=== PATIENT | male | born 1990 | race Two or more races ===

== ENCOUNTER 2018-02-24 07:14 | Emergency (ER) | payer SELFPAY ==
[2018-02-24 07:29] VITALS: BP 119/76; PULSE 52; TEMP 98.1; BMI 26.6
--- NOTE | 2018-02-24 07:55 | PDOC ---
Attending Attestation - HPI HPI: 02/24/18 08:00 The patient is a 27 year old male, with no significant past medical history, who presents to the emergency department with 3 days of increased urinary frequency. The patient states his lives in [place] and he recently had sex with a new partner. He is requesting STD testing. He reports some unknown STD in the past but reports resolution with medications. He denies chest pain, shortness of breath, headache and dizziness. He denies fever, chills, nausea, vomit, diarrhea and constipation. He denies dysuria, frequency, urgency and hematuria. Allergies: NKDA - Physicial Exam PE: 02/24/18 08:01 Vitals: Triage vital signs reviewed General Appearance: No acute distress, well nourished, well developed Head: Atraumatic Eyes: Pupils equal reactive round, extraocular movement intact Neck: Supple; No nuchal rigidity Chest Wall: Nontender Cardiac: Regular rate and rhythm, no murmurs, no rubs, no gallops Lungs: Clear to auscultation bilateral, good air movement bilaterally Abdomen: Soft, nondistended, normal bowel sounds, nontender to palpation Musculoskeletal: no CVA tenderness Genitourinary: no discharge, no testicular pain, no rashes Rectal: Exam deferred Extremities: Full range of motion to all extremities, no cyanosis, clubbing, or edema Skin: Warm and dry, no rashes or lesions, no rash, no petechiae Neuro: AOX3; Cranial Nerves 2-12 grossly intact, Strength intact to all extremities, Sensation intact to all extremities, gait normal Psych: Normal mood, normal affect - Medical Decision Making 02/24/18 08:01 This is a 27 year old M, with no significant past medical history, who presents to the emergency department with 3 days of increased urinary frequency since having intercourse with a new partner. Plan: Labs, reassess, dispo 02/24/18 08:05 Documentation prepared by Melissa Whitman, acting as front office medical assistant for Andrea Guaman MD, <Melissa Whitman - Last Filed: 02/24/18 09:23> - Resident Resident Name: August Solitario - ED Attending Attestation I have performed the following: I have examined & evaluated the patient, The case was reviewed & discussed with the resident, I agree w/resident's findings & plan, Exceptions are as noted - Medical Decision Making Mild dysuria no signs and symptoms of obvious STD. GC chlamydia and syphilis all sent. Patient will be informed of any positive results Findings, need for follow-up and strict return instructions discussed with patient. <Andrea Guaman - Last Filed: 02/24/18 14:05>
[2018-02-24 08:12] LABS: BASO % 0.4 % (0-2.0); EOS % 0.7 % (0-4.5); HEMATOCRIT 44.3 % (35.4-49); HEMOGLOBIN 15.6 GM/dL (11.7-16.9); LYMPH % 28.7 % (8-40); MCH 29.2 pg (25.7-33.7); MCHC 35.1 g/dl (32.0-35.9); MEAN CELL VOLUME 83.2 fl (80-96); MEAN PLT VOLUME 8.3 fl (7.5-11.1); NEUT % 63.2 % (42.8-82.8); PLATELET COUNT 217 K/MM3 (134-434); RBC 5.32 M/mm3 (4.00-5.60); RDW 13.4 % (11.9-15.9); WHITE BLOOD COUNT 5.2 K/mm3 (4.0-10.0)
[2018-02-24 08:14] LABS: URINE APPEARANCE CLEAR; URINE BILIRUBIN NEGATIVE (<2.0 mg/dL); URINE BLOOD NEGATIVE (NEGATIVE); URINE COLOR YELLOW; URINE GLUCOSE (UA) NEGATIVE (NEGATIVE); URINE KETONE NEGATIVE (NEGATIVE); URINE LEUK ESTERASE NEGATIVE (NEGATIVE); URINE NITRITE NEGATIVE (NEGATIVE); URINE PROTEIN NEGATIVE (NEGATIVE); URINE UROBILINOGEN NEGATIVE mg/dL (0.2-1.0)
--- NOTE | 2018-02-24 08:16 | PDOC ---
History of Present Illness - General Chief Complaint: Urinary Problem Stated Complaint: R/O UTI Time Seen by Provider: 02/24/18 07:31 History Source: Patient Exam Limitations: No Limitations - History of Present Illness Initial Comments: 02/24/18 08:05 27m with no pmh presents to the ED for increased urination frequency with residual post-void feeling for the past 3 days. States he's urinating 15 times throughout the day. Patient desires to be evaluated for STDs as he may have had some risky sexual behavior. One remote episode of penile discharge that was treated. Unknown if it was chlamydia. Denies rash, burning on urination, pruritus. Past History - Past Medical History Allergies/Adverse Reactions: Allergies Allergy/AdvReac Type Severity Reaction Status Date / Time No Known Allergies Allergy Verified 02/24/18 07:25 Home Medications: Ambulatory Orders NK [No Known Home Medication] 02/24/18 COPD: No - Suicide/Smoking/Psychosocial Hx Smoking History: Never smoked Have you smoked in the past 12 months: No Information on smoking cessation initiated: No Hx Alcohol Use: No Drug/Substance Use Hx: No Substance Use Type: None Review of Systems - Review of Systems Able to Perform ROS?: Yes Is the patient limited Greenlandic proficient: No Constitutional: No: Symptoms Reported HEENTM: No: Symptoms Reported Respiratory: No: Symptoms reported Cardiac (ROS): No: Symptoms Reported ABD/GI: No: Symptoms Reported : Yes: See HPI Musculoskeletal: No: Symptoms Reported Integumentary: No: Symptoms Reported Neurological: No: Symptoms reported Endocrine: No: Symptoms Reported All Other Systems: Reviewed and Negative *Physical Exam - Vital Signs Last Vital Signs Temp Pulse Resp BP Pulse Ox 98.1 F 52 L 16 119/76 100 02/24/18 07:26 02/24/18 07:26 02/24/18 07:26 02/24/18 07:26 02/24/18 07:26 - Physical Exam General Appearance: Yes: Nourished, Appropriately Dressed. No: Apparent Distress HEENT: positive: EOMI, ALYSA, Normal ENT Inspection Respiratory/Chest: positive: Lungs Clear, Normal Breath Sounds. negative: Chest Tender, Respiratory Distress Cardiovascular: positive: Regular Rhythm, Regular Rate, S1, S2 Male Genitalia: positive: normal genitalia Extremity: positive: Normal Inspection, Normal Range of Motion Integumentary: positive: Normal Color, Dry, Warm Neurologic: positive: Fully Oriented, Alert, Normal Mood/Affect ED Treatment Course - LABORATORY CBC & Chemistry Diagram: 02/24/18 08:00 02/24/18 08:00 Medical Decision Making - Medical Decision Making 02/24/18 08:17 27m with pmh presents with increased urination and request for STD testing. Will send basic labs, UA and STD panel. 02/24/18 09:28 HIV negative. Will call if gonorrhea/chlam come back positive. DC *DC/Admit/Observation/Transfer Diagnosis at time of Disposition: Frequency of micturition - Discharge Dispostion Disposition: HOME Condition at time of disposition: Improved Admit: No - Referrals - Patient Instructions Printed Discharge Instructions: How to Detect and Treat STDs, Facts About Sexually Transmitted Infections Additional Instructions: Come back to the ER for any new, worsening or concerning symptom. You will get called for the results of your test if positive. Print Language: GERMAN - Post Discharge Activity
[2018-02-24 08:33] LABS: ALBUMIN 4.5 g/dl (3.4-5.0); ALK PHOS 72 U/L (45-117); ANION GAP 5 (8-16); BILIRUBIN,TOTAL 0.7 mg/dL (0.2-1.0); BLOOD UREA NITROGEN 9 mg/dL (7-18); CHLORIDE 105 mmol/L (98-107); CO2 28 mmol/L (21-32); CREATININE 0.8 mg/dL (0.7-1.3); GLUCOSE,RANDOM 100 mg/dL (74-106); SGOT/AST 21 U/L (15-37); SGPT/ALT 22 U/L (12-78); SODIUM 138 mmol/L (136-145); TOT PROT 7.6 g/dl (6.4-8.2)
== END 2018-02-24 09:38 | disposition home or self-care (01) ==
LOC: JER 07:14
DX: Z11.3 Encounter for screening for infections with a predominantly sexual mode of transmission (principal); R35.0 Frequency of micturition
CPT/HCPCS: 36415; 80053; 81003; 85025; 86593; 87389; 87491; 87591; 99282-25

== ENCOUNTER 2018-07-16 15:19 | Emergency (ER) | payer OTHER ==
[2018-07-16 15:28] VITALS: BMI 42.5
--- NOTE | 2018-07-16 15:46 | PDOC ---
History of Present Illness - General Chief Complaint: Pain Stated Complaint: FREQUENT URINATION Time Seen by Provider: 07/16/18 15:46 - History of Present Illness Initial Comments: 07/16/18 15:54 Mr. Kitchen is a 28 yo male w/ no significant pmh who presents for evaluation of 1 week history of frequent urination and 1 day history of R testicle pain. Patient denies any trauma or other injury. Reports he is not sexually active [place]. STI testing offered and refused at this time. The patient denies chest pain, shortness of breath, headache and dizziness. Denies fever, chills, nausea, vomit, diarrhea and constipation. Denies dysuria, frequency, urgency and hematuria. Allergies: NKDA Past History - Past Medical History Allergies/Adverse Reactions: Allergies Allergy/AdvReac Type Severity Reaction Status Date / Time No Known Allergies Allergy Verified 07/16/18 15:29 Home Medications: Ambulatory Orders NK [No Known Home Medication] 02/24/18 COPD: No - Suicide/Smoking/Psychosocial Hx Smoking History: Never smoked Have you smoked in the past 12 months: No Hx Alcohol Use: No Drug/Substance Use Hx: No Substance Use Type: None Review of Systems - Review of Systems Comments:: 07/16/18 15:55 GENERAL/CONSTITUTIONAL: No fever or chills. No weakness. HEAD, EYES, EARS, NOSE AND THROAT: No change in vision. No ear pain or discharge. No sore throat. CARDIOVASCULAR: No chest pain or shortness of breath RESPIRATORY: No cough, wheezing, or hemoptysis. GASTROINTESTINAL: No nausea, vomiting, diarrhea or constipation. GENITOURINARY: +Right testicle pain as described. Urinary frequency x1 week. MUSCULOSKELETAL: No joint or muscle swelling or pain. No neck or back pain. SKIN: No rash NEUROLOGIC: No headache, vertigo, loss of consciousness, or change in strength/ sensation. ENDOCRINE: No increased thirst. No abnormal weight change HEMATOLOGIC/LYMPHATIC: No anemia, easy bleeding, or history of blood clots. ALLERGIC/IMMUNOLOGIC: No hives or skin allergy. *Physical Exam - Vital Signs Last Vital Signs Temp Pulse Resp BP Pulse Ox 98.8 F 68 18 126/73 98 07/16/18 15:24 07/16/18 15:24 07/16/18 15:24 07/16/18 15:24 07/16/18 15:24 - Physical Exam Comments: 07/16/18 15:55 GENERAL: Awake, alert, and fully oriented, in no acute distress HEAD: No signs of trauma, normocephalic, atraumatic EYES: PERRLA, EOMI, sclera anicteric, conjunctiva clear ENT: Auricles normal inspection, hearing grossly normal, nares patent, oropharynx clear without exudates. Moist mucosa NECK: Normal ROM, supple, no lymphadenopathy, JVD, or masses LUNGS: No distress, speaks full sentences, clear to auscultation bilaterally HEART: Regular rate and rhythm, normal S1 and S2, no murmurs, rubs or gallops, peripheral pulses normal and equal bilaterally. ABDOMEN: Soft, nontender, normoactive bowel sounds. No guarding, no rebound. No masses EXTREMITIES: Normal inspection, Normal range of motion, no edema. No clubbing or cyanosis. NEUROLOGICAL: Cranial nerves II through XII grossly intact. Normal speech, normal gait, no focal sensorimotor deficits SKIN: Warm, Dry, normal turgor, no rashes or lesions noted. : +Pain w/ palpation of R testicle. Normal cremasteric reflex LASHONDA. No deformity appreciated. Medical Decision Making - Medical Decision Making 07/16/18 19:31 Mr. Kitchen is a 28 yo male w/ pmh as described who presents for evaluation of testicular pain and frequent urination. Patient recently had workup which confirmed no DM so no further blood testing taken. UA negative as below. US ordered for further evaluation negative. No concern for acute process at this time. Discharging to home for further outpatient evaluation. Laboratory Results - last 24 hr 07/16/18 16:00 Urine Color Yellow Urine Appearance Clear Urine pH 5.0 Ur Specific [place] 1.023 Urine Protein Negative Urine Glucose (UA) Negative Urine Ketones Negative Urine Blood Negative Urine Nitrite Negative Urine Bilirubin Negative Urine Urobilinogen Negative Ur Leukocyte Esterase Negative *DC/Admit/Observation/Transfer Diagnosis at time of Disposition: Frequency of micturition, Testicular pain - Discharge Dispostion Disposition: HOME - Referrals Referrals: Boaz Villagomez MD [Staff Physician] - - Patient Instructions Printed Discharge Instructions: DI for Testicular Pain Additional Instructions: You were evaluated today in the ER for your testicular pain. No concerning findings were found at this time. Please follow-up with urology using provided information next week outpatient for further evaluation. Return to ER if any increase in pain, fever, chills, or other concerning symptoms. Print Language: MONGOLIAN - Post Discharge Activity
[2018-07-16 16:11] LABS: URINE APPEARANCE CLEAR; URINE BILIRUBIN NEGATIVE (<2.0 mg/dL); URINE COLOR YELLOW; URINE GLUCOSE (UA) NEGATIVE (NEGATIVE); URINE KETONE NEGATIVE (NEGATIVE); URINE LEUK ESTERASE NEGATIVE (NEGATIVE); URINE NITRITE NEGATIVE (NEGATIVE); URINE PROTEIN NEGATIVE (NEGATIVE); URINE UROBILINOGEN NEGATIVE mg/dL (0.2-1.0)
[2018-07-16] MEDS ORDERED: ACETAMINOPHEN 500 MG TABLET (FP) PO ONE (17:28)
[2018-07-16] MEDS ORDERED: ACETAMINOPHEN 325 MG TABLET (FP) ONE (17:36)
[2018-07-16 18:27] VITALS: BP 122/72; PULSE 60; TEMP 98.6
--- NOTE | 2018-07-16 19:28 | PDOC ---
Attending Attestation - Resident Resident Name: Jeff Cartwright - ED Attending Attestation I have performed the following: I have examined & evaluated the patient, The case was reviewed & discussed with the resident, I agree w/resident's findings & plan, Exceptions are as noted - HPI HPI: 07/16/18 19:25 Patient is a 28 year old male with no significant past medical history who presents to the ED with complaints of urinary frequency that began x1 week ago. Patient reports experiencing associated symptom of right testicular pain that he states began x1 day ago, prompting him to come into the ED for further evaluation. He reports not being sexually active at this time due to his spouse living in [place]. Denies h/o STI. Denies any significant swelling to scrotum. Denies dysuria. Denies chest pain, Sob. Denies nausea, vomiting. Denies contact with sick individuals, out of state travelling. Denies dysuria hematuria. Denies constipation, diarrhea Denies any other symptoms. Allergies: None Social history: No smoking. No alcohol. No illicit drugs. Surgical history: None PMD: None - Physicial Exam PE: 07/16/18 19:27 GENERAL: Awake, alert, and fully oriented, in no acute distress. HEAD: No signs of trauma EYES: PERRLA, EOMI, sclera anicteric, conjunctiva clear ENT: Auricles normal inspection, hearing grossly normal, nares patent, oropharynx clear without exudates. Moist mucosa NECK: Nontender, no stepoffs, Normal ROM, supple, no lymphadenopathy, JVD, or masses LUNGS: Breath sounds equal, clear to auscultation bilaterally. No wheezes, and no crackles HEART: Regular rate and rhythm, normal S1 and S2, no murmurs, rubs or gallops ABDOMEN: Soft, nontender, normoactive bowel sounds. No guarding, no rebound. No masses EXTREMITIES: Normal range of motion, no edema. No clubbing or cyanosis. No cords, erythema, or tenderness NEUROLOGICAL: Cranial nerves II through XII intact. 5/5 strength and sensation in all extremities, Normal speech, normal gait, normal cerebellar function SKIN: Warm, Dry, normal turgor, no rashes or lesions noted. : normal appearing scrotum and penis, normal lay, normal cremaster reflex, R testicle with mild tenderness, no fluctuance or induration - Medical Decision Making 07/16/18 19:27 28 M with R scrotal pain and urinary frequency. Exam relatively benign with only mild tenderness to R testicle. Pt offered HIV and STD testing but refused. - UA, UCx - Scrotal US 07/16/18 20:23 UA, US wnl Pt given urology f/u. Pt is well appearing, with normal vitals. Clinically stable for DC at this time. I discussed the physical exam findings, ancillary test results and final diagnoses with the patient. I answered all of the patient's questions. The patient was satisfied with the care received and felt comfortable with the discharge plan and treatment plan. The patient agrees to follow up with the primary care physician within 24-72 hours.
== END 2018-07-16 19:50 | disposition home or self-care (01) ==
LOC: JER 15:19
DX: N50.811 Right testicular pain (principal); R35.0 Frequency of micturition
CPT/HCPCS: 76870-TC; 81003; 87086; 99282-25